=== PATIENT | female | born 1980 | race African-American/Black ===

== ENCOUNTER 2022-12-08 10:25 | Emergency (ER) | payer OTHER ==
[~2022-12-08] VITALS: Ht 177.8 cm; Wt 90.0 kg
[2022-12-08 11:05] VITALS: TEMP 98; O2SAT 99
[2022-12-08] MEDS ORDERED: FLUORESCEIN SODIUM 1MG/STRIP BOTHEYE ONE (12:30)
[2022-12-08] MEDS ORDERED: TETRACAINE 0.5% OPHTH DROPS 4ML BOTHEYE ONE (12:30)
[2022-12-08 13:30] VITALS: BP 132/80; PULSE 90; RESP 18
[2022-12-08] MEDS ORDERED: IBUPROFEN 400MG TABLET PO NR (13:30)
[2022-12-08] MEDS ORDERED: IBUPROFEN 800MG TABLET PO ONE (13:30)
[2022-12-08] MEDS ORDERED: KETO5DRO80 LEFTEYE (13:37)
[2022-12-08] MEDS ORDERED: POLY10DR LEFTEYE (13:37)
== END 2022-12-08 14:12 | disposition home or self-care (01) ==
LOC: ER 10:25
DX: H10.9 Unspecified conjunctivitis (principal); F41.9 Anxiety disorder, unspecified; F32.9 Major depressive disorder, single episode, unspecified; Z90.710 Acquired absence of both cervix and uterus
CPT/HCPCS: 99283